=== PATIENT | female | born 1955 ===

== ENCOUNTER 2018-02-28 09:35 | Emergency (ER) | payer BC ==
[2018-02-28 09:54] VITALS: BP 156/83
--- NOTE | 2018-02-28 10:02 | UC ---
Respiratory Complaint HPI - HPI Summary HPI Summary: Patient urgent care today with chief complaint nasal congestion and feeling fatigued cough. Seen her primary care doctor started on Zithromax has nasal sprays and inhalers already that aren't providing much relief. Patient recently returned from [place] and is planning to leave for [place] tomorrow. Patient has had a flu vaccine. Does report some body aches and fatigue - History of Current Complaint Chief Complaint: UCRespiratory Stated Complaint: CONGESTED,COUGH Time Seen by Provider: 02/28/18 10:00 Hx Obtained From: Patient ?: No Onset/Duration: Sudden Onset, Lasting Days, Still Present Timing: Constant Severity Initially: Mild Severity Currently: Mild Character: Cough: Nonproductive Aggravating Factors: Nothing Alleviating Factors: Nothing Associated Signs And Symptoms: Positive: URI, Nasal Congestion - Allergies/Home Medications Allergies/Adverse Reactions: Allergies Allergy/AdvReac Type Severity Reaction Status Date / Time No Known Allergies Allergy Verified 02/28/18 09:54 Home Medications: Home Medications ALPRAZolam TAB* [Xanax TAB*] 0.25 mg PO Q6H PRN 02/28/18 [History Confirmed ] Albuterol inh POWDER (NF) [Proair Respiclick] 108 mcg IN 02/28/18 [History] Azelastine 0.05% (OPHTH)(NF) [Optivar 0.05% (NF)] 1 drop BOTH EYES BID 02/28/18 [History Confirmed 02/28/18] Azithromycin TAB* [Zithromax TAB (Z-KERMIT) 250 mg #6 tabs] 500 mg PO DAILY [History Confirmed 02/28/18] Brinzolamid/Brimonidin OPH(NF) [Simbrinza OPH.SUSP(NF)] 1 drop OTIC DAILY [History Confirmed 02/28/18] Fluticasone Furoate [Arnuity Ellipta] 100 mcg IN 02/28/18 [History] Ipratropium HFA INHALER(NF) [Atrovent Hfa Inhaler(NF)] 2 puff INH Q6H 02/28/18 [ History Confirmed 02/28/18] Latanoprost 0.005%* [Xalatan 0.005%*] 1 drop LEFT EYE QPM 02/28/18 [History Confirmed 02/28/18] Mometasone NASAL (NF) [Nasonex (NF)] 50 mcg NA 02/28/18 [History] Omeprazole 40 mg PO DAILY 02/28/18 [History Confirmed 02/28/18] Sertraline HCl [Zoloft] 50 mg PO DAILY 02/28/18 [History Confirmed 02/28/18] PMH/Surg Hx/FS Hx/Imm Hx Previously Healthy: No Respiratory History: Asthma GI/ History: Gastroesophageal Reflux Psychological History: Anxiety - Surgical History Surgical History: Yes Surgery Procedure, Year, and Place: knee - Family History Known Family History: Positive: None - Social History Occupation: Employed Full-time Lives: With Family Alcohol Use: Occasionally Substance Use Type: None Smoking Status (MU): Never Smoked Tobacco Review of Systems Constitutional: Fever, Chills, Fatigue Skin: Negative Eyes: Negative ENT: Nasal Discharge, Sinus Congestion Respiratory: Cough Cardiovascular: Negative Gastrointestinal: Negative Genitourinary: Negative Motor: Negative Neurovascular: Negative Musculoskeletal: Negative Neurological: Negative Psychological: Negative Is Patient Immunocompromised?: No All Other Systems Reviewed And Are Negative: Yes Physical Exam Triage Information Reviewed: Yes Appearance: Well-Nourished, Ill-Appearing - mild, Pain Distress - mild Vital Signs: Initial Vital Signs Temp 99.1 F 02/28/18 09:47 Pulse 69 02/28/18 09:47 Resp 18 02/28/18 09:47 BP 156/83 02/28/18 09:47 Pulse Ox 100 02/28/18 09:47 Vital Signs Reviewed: Yes Eye Exam: Normal Eyes: Positive: Conjunctiva Clear ENT Exam: Normal ENT: Positive: Normal ENT inspection, Hearing grossly normal, Pharynx normal, Nasal congestion, Nasal drainage, TMs normal, Uvula midline. Negative: Tonsillar swelling, Tonsillar exudate, Trismus, Muffled voice, Hoarse voice, Dental tenderness, Sinus tenderness Dental Exam: Normal Neck exam: Normal Neck: Positive: Supple, Nontender, No Lymphadenopathy Respiratory Exam: Normal Respiratory: Positive: Chest non-tender, Lungs clear, Normal breath sounds, No respiratory distress, No accessory muscle use Cardiovascular Exam: Normal Cardiovascular: Positive: RRR, No Murmur, Pulses Normal, Brisk Capillary Refill Musculoskeletal Exam: Normal Musculoskeletal: Positive: Strength Intact, ROM Intact, No Edema Neurological Exam: Normal Neurological: Positive: Alert, Muscle Tone Normal Psychological Exam: Normal Skin Exam: Normal UC Diagnostic Evaluation - Laboratory O2 Sat by Pulse Oximetry: 100 Diagnostic Studies Comment: influenza A/B (-) - Radiology Xray Interpretation: No Acute Changes Radiology Interpretation Completed By: ED Physician, Radiologist Respiratory Course/Dx - Course Course Of Treatment: I will Rx the patient Tamiflu to take to [place] with her. Tessalon Perles Robitussin and codeine. Advised increased fluids use nasal saline return or follow with PCP when necessary - Differential Dx/Diagnosis Provider Diagnoses: Upper respiratory infection, cough, elevated blood pressure without history of hypertension Discharge - Sign-Out/Discharge Documenting (check all that apply): Discharge - Discharge Plan Condition: Stable Disposition: HOME Prescriptions: Benzonatate CAP* [Tessalon 100 MG CAP*] 100 - 200 mg PO TID PRN #40 cap PRN Reason: cough guaiFENesin/CODIEN 100MG-10MG* [Robitussin AC 100Mg-10Mg*] 5 - 10 ml PO Q4H PRN #120 ml MDD 40 PRN Reason: cough Oseltamivir CAP* [Tamiflu CAP*] 75 mg PO BID #10 cap Patient Education Materials: Sodium Chloride (Into the nose), Upper Respiratory Infection (ED), Hypertension (ED) Forms: *Gen. Provider Communication Referrals: No Primary Care Phys,NOPCP [Primary Care Provider] - Additional Instructions: Follow with your primary care doctor or return to urgent care as needed. - Billing Disposition and Condition Condition: STABLE Disposition: HOME
--- NOTE | 2018-02-28 10:41 | RAD ---
Indication: Cough and congestion. 2 views of the chest demonstrate no mediastinal shift. Heart is of normal size and configuration. Fuller are clear. IMPRESSION: No active cardiopulmonary disease is noted.
== END 2018-02-28 11:25 | disposition home or self-care (01) ==
LOC: UCEAST 09:35
DX: J06.9 Acute upper respiratory infection, unspecified (principal); R05 Cough; R03.0 Elevated blood-pressure reading, without diagnosis of hypertension; J45.909 Unspecified asthma, uncomplicated; K21.9 Gastro-esophageal reflux disease without esophagitis; F41.9 Anxiety disorder, unspecified
CPT/HCPCS: 71046; 87502; 99202; G0463